=== PATIENT | male | born 1980 | race Caucasian/White ===

== ENCOUNTER 2018-09-11 15:26 | Inpatient (IN) | payer OTHER ==
[~2018-09-11] VITALS: Ht 177.8 cm; Wt 98.9 kg
[2018-09-11] MEDS ORDERED: ONDANSETRON PF 4 MG/2 ML VIAL. IV ONE (16:00)
[2018-09-11] MEDS ORDERED: MORPHINE SULFATE 10 MG/ML VIAL. IV ONE (16:00)
--- NOTE | 2018-09-11 16:13 | PHYS DOC ---
Adult General Chief Complaint Chief Complaint: Neck Pain HPI HPI Patient is a 38 year old male with history of chronic neck and back pain who presents with acute right-sided neck pain radiating to right shoulder, anterior chest. Symptom onset was 9 days ago. Symptoms gradually progress. Pain is described moderate to severe worse palpation, neck rotation and movement. 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 Denies trauma to the region. Patient has taken [id number] pain medication and has had multiple neck and just some spinous chiropractor in the past week. Reports history of herniated disks. No motor weakness. [place] from like Year. No other acute symptoms or complaints. [] Review of Systems Review of Systems Review symptoms as per history of present illness. All other review symptoms are negative.[] All other systems were reviewed and found to be within normal limits, except as documented in this note. Current Medications Current Medications Current Medications Medications (Trade) Dose Ordered Sig/Eddie Start Time Stop Time Status Last Admin Dose Admin Info (CONTRAST GIVEN -- Rx MONITORING) 1 each PRN DAILY PRN 09/11/18 17:45 09/13/18 17:44 Iohexol (Omnipaque 350 Mg/ml) 75 ml 1X ONCE 09/11/18 18:00 09/11/18 18:01 09/11/18 17:43 75 ML Lorazepam (Ativan Inj) 1 mg 1X ONCE 09/11/18 16:00 09/11/18 16:26 DC 09/11/18 16:37 1 MG Morphine Sulfate (Morphine Sulfate) 5 mg 1X ONCE 09/11/18 16:00 09/11/18 16:26 DC 09/11/18 16:37 5 MG Ondansetron HCl (Zofran) 4 mg 1X ONCE 09/11/18 16:00 09/11/18 16:26 DC 09/11/18 16:36 4 MG Allergies Allergies Allergies Coded Allergies Type Severity Reaction Last Updated Verified No Known Drug Allergies 09/11/18 No Physical Exam Physical Exam Constitutional: Well developed, well nourished, anxious, moderate distress secondary to pain.. [] HENT: Normocephalic, atraumatic, bilateral external ears normal, oropharynx moist, no oral exudates, nose normal. [] Eyes: PERRLA, EOMI, conjunctiva normal, no discharge. [] Neck: Restricted range of motion secondary to pain, right paracervical muscle pain, tenderness, reproducing complaint with palpation and rotation. No midline step-off, bruising or swelling.. [] Cardiovascular:Heart rate regular rhythm, no murmur [] Lungs & Thorax: Bilateral breath sounds clear to auscultation [] Neurologic: Alert and oriented X 3, normal motor function, normal sensory function, no focal deficits noted. [] Psychologic: Affect normal, judgement normal, mood normal. [] Current Patient Data Vital Signs Vital Signs Date Time Temp Pulse Resp B/P (MAP) Pulse Ox O2 Delivery O2 Flow Rate FiO2 09/11/18 16:37 20 98 Room Air 09/11/18 15:30 98.0 83 162/100 (120) 98.0 Lab Values Laboratory Tests Test 09/11/18 16:20 White Blood Count 8.4 x10^3/uL (4.0-11.0) Red Blood Count 5.40 x10^6/uL (4.30-5.70) Hemoglobin 16.4 g/dL (13.0-17.5) Hematocrit 47.9 % (39.0-53.0) Mean Corpuscular Volume 89 fL (79-100) Mean Corpuscular Hemoglobin 30 pg (25-35) Mean Corpuscular Hemoglobin Concent 34 g/dL (31-37) Red Cell Distribution Width 13.7 % (11.5-14.5) Platelet Count 232 x10^3/uL (140-400) Neutrophils (%) (Auto) 68 % (31-73) Lymphocytes (%) (Auto) 21 % (24-48) L Monocytes (%) (Auto) 10 % (0-9) H Eosinophils (%) (Auto) 1 % (0-3) Basophils (%) (Auto) 0 % (0-3) Neutrophils # (Auto) 5.7 x10^3uL (1.8-7.7) Lymphocytes # (Auto) 1.7 x10^3/uL (1.0-4.8) Monocytes # (Auto) 0.8 x10^3/uL (0.0-1.1) Eosinophils # (Auto) 0.1 x10^3/uL (0.0-0.7) Basophils # (Auto) 0.0 x10^3/uL (0.0-0.2) Sodium Level 141 mmol/L (136-145) Potassium Level 4.2 mmol/L (3.5-5.1) Chloride Level 105 mmol/L (98-107) Carbon Dioxide Level 27 mmol/L (21-32) Anion Gap 9 (6-14) Blood Urea Nitrogen 19 mg/dL (8-26) Creatinine 1.2 mg/dL (0.7-1.3) Estimated GFR (Cockcroft-Gault) 67.4 Glucose Level 119 mg/dL (70-99) H Calcium Level 9.1 mg/dL (8.5-10.1) Laboratory Tests 09/11/18 16:20 Laboratory Tests 09/11/18 16:20 EKG EKG [] Radiology/Procedures Radiology/Procedures [CT angiogram head and neck: Pending] Course & Med Decision Making Course & Med Decision Making Pertinent Labs and Imaging studies reviewed. (See chart for details) [Right paracervical neck pain with radiculopathy, no motor weakness. Pain is intractable requiring repeat doses of pain medication in the ED with patient reporting significant residual pain. MRI is unavailable for evaluation of possible disc herniation. Will admit to the hospital service for pain control and evaluation. Official CT angio head and neck studies at time of dictation. ] Dragon Disclaimer Dragon Disclaimer This electronic medical record was generated, in whole or in part, using a voice recognition dictation system. Departure Departure Impression: Primary Impression: Cervical radiculopathy, acute Additional Impression: Intractable pain Disposition: 09 ADMITTED INPATIENT Admitting Physician: Mecca Vinson Condition: IMPROVED Problem Qualifiers MIMI BINGHAM DO September 11, 2018 16:13
[2018-09-11 16:40] LABS: BASO % 0 % (0-3); EOS # 0.1 x10^3/uL (0.0-0.7); EOS % 1 % (0-3); HEMATOCRIT 47.9 % (39.0-53.0); HEMOGLOBIN 16.4 g/dL (13.0-17.5); LYMPH # 1.7 x10^3/uL (1.0-4.8); LYMPH % 21 % (24-48); MEAN CORPUSCULAR HEMOGLOBIN 30 pg (25-35); MEAN CORPUSCULAR HGB CONC 34 g/dL (31-37); MEAN CORPUSCULAR VOLUME 89 fL (79-100); MONO # 0.8 x10^3/uL (0.0-1.1); MONO % 10 % (0-9); NEUT # 5.7 x10^3uL (1.8-7.7); NEUT % 68 % (31-73); PLATELET COUNT 232 x10^3/uL (140-400); RED CELL DISTRIBUTION WIDTH 13.7 % (11.5-14.5); WHITE BLOOD COUNT 8.4 x10^3/uL (4.0-11.0)
[2018-09-11 16:48] LABS: CALCIUM 9.1 mg/dL (8.5-10.1); CREATININE 1.2 mg/dL (0.7-1.3); GFR 67.4; POTASSIUM 4.2 mmol/L (3.5-5.1)
[2018-09-11] MEDS ORDERED: CONTRAST GIVEN. MC PRN (17:45)
[2018-09-11] MEDS ORDERED: ONDANSETRON PF 4 MG/2 ML VIAL. IV PRN (18:00)
[2018-09-11] MEDS ORDERED: DEXAMETHASONE SOD PHOS 20 MG/5 ML VIAL. IV ONE (18:00)
[2018-09-11] MEDS ORDERED: IOHEXOL 350 MG/ML 100 ML VIAL. IV ONE (18:00)
--- NOTE | 2018-09-11 18:26 | RAD ---
Head and neck CTA with and without contrast and 3-D reconstruction: Clinical indications: Neck pain and headache for 9 days. Right arm tingling. Had seen chiropractor. Technique: Noncontrast axial localizer was performed. Following IV infusion of 100 cc of Omnipaque 350, helical CT scanning of the neck and head was performed. Axial and coronal and sagittal 2-D MIP reconstructions were generated and reviewed on a computer monitor. Using a MIP algorithm, a 3-D reconstructed angiogram was generated and reviewed on a computer monitor. PQRS compliance Statement One or more of the following individualized dose reduction techniques were utilized for this study: 1. Automated exposure control 2. Adjustment of the mA and/or kV according to patient size 3. Use of iterative reconstruction technique The measurements were performed using the NASCET criteria. Head CT Findings: No acute intracranial hemorrhage or midline shift or mass effect or hydrocephalus or extra-axial fluid collection or intracranial contrast enhancing lesion is seen. No focal hypodense area is seen to indicate an acute infarct or edema radiographically. Neck CTA Findings: No occlusive disease is seen. No significant stenosis is evident. The vertebral arteries are codominant in size. No intimal flap or dissection is seen. No soft tissue mass or enlarged cervical lymphadenopathy is seen. Head CTA Findings: No aneurysm is seen involving the [place]. No occlusive disease or significant stenosis is seen. No thromboembolism is identified. No arteriovenous malformation is evident. IMPRESSION: No significant abnormality. Electronically signed by: Ajay Cobos MD (09/11/2018 6:23 PM) [facility]
[2018-09-11 18:40] VITALS: BP 98/62
[2018-09-11] MEDS: MORPHINE SULFATE 2 MG/ML VIAL. IV PRN (20:19)
[2018-09-12] MEDS: MORPHINE SULFATE 2 MG/ML VIAL. IV PRN ×4 (00:23→08:43)
[2018-09-12] MEDS: IV NORMAL SALINE 1000ML BAG 1,000 ML IV SCH ×2 (06:36→15:08)
[2018-09-12] MEDS: CYCLOBENZAPRINE 10 MG TABLET. PO PRN ×2 (06:36→20:30)
[2018-09-12] MEDS: GABAPENTIN 300 MG CAPSULE. PO SCH ×2 (06:38→20:31)
[2018-09-12 07:00] VITALS: BP 141/64
[2018-09-12 07:06] LABS: BASO % 0 % (0-3); EOS # 0.1 x10^3/uL (0.0-0.7); EOS % 1 % (0-3); HEMATOCRIT 48.6 % (39.0-53.0); HEMOGLOBIN 16.5 g/dL (13.0-17.5); LYMPH # 2.2 x10^3/uL (1.0-4.8); LYMPH % 24 % (24-48); MEAN CORPUSCULAR HEMOGLOBIN 30 pg (25-35); MEAN CORPUSCULAR HGB CONC 34 g/dL (31-37); MEAN CORPUSCULAR VOLUME 89 fL (79-100); MONO # 0.7 x10^3/uL (0.0-1.1); MONO % 8 % (0-9); NEUT # 6.1 x10^3uL (1.8-7.7); NEUT % 67 % (31-73); PLATELET COUNT 234 x10^3/uL (140-400); RED BLOOD COUNT 5.45 x10^6/uL (4.30-5.70); RED CELL DISTRIBUTION WIDTH 13.6 % (11.5-14.5); WHITE BLOOD COUNT 9.1 x10^3/uL (4.0-11.0)
[2018-09-12 07:23] LABS: CALCIUM 8.9 mg/dL (8.5-10.1); CREATININE 1.2 mg/dL (0.7-1.3); GFR 67.4; POTASSIUM 3.9 mmol/L (3.5-5.1)
[2018-09-12] MEDS ORDERED: FEXO180T81 PO (08:50)
[2018-09-12] MEDS ORDERED: GABAPENTIN 300 MG CAPSULE. PO SCH (09:00)
[2018-09-12 11:00] VITALS: BP 98/59
--- NOTE | 2018-09-12 11:40 | PDOC1 ---
History and Physical Date of Admission Date of Admission DATE: 09/12/18 TIME: 11:40 Identification/Chief Complaint Chief Complaint SEEN IN ER , 38 year old male with history of chronic neck and back pain who presents with acute right-sided neck pain radiating to right shoulder, anterior chest. Symptom onset was 9 days ago. Symptoms gradually progress. Pain is described moderate to severe worse palpation, neck rotation and movement. 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 Reports history of herniated disks. No motor weakness Past Medical History Cardiovascular: Hyperlipidemia Past Surgical History Past Surgical History: No pertinent history Family History Family History: High Cholestrol Social History Smoke: No ALCOHOL: occassional Drugs: None Current Problem List Problem List Problems Medical Problems: (1) Cervical radiculopathy, acute Status: Acute (2) Intractable pain Status: Acute Current Medications Current Medications Current Medications Morphine Sulfate (Morphine Sulfate) 5 mg 1X ONCE IV Last administered on 09/11/18at 16:37; Start 09/11/18 at 16:00; Stop 09/11/18 at 16:26; Status DC Ondansetron HCl (Zofran) 4 mg 1X ONCE IV Last administered on 09/11/18at 16:36; Start 09/11/18 at 16:00; Stop 09/11/18 at 16:26; Status DC Lorazepam (Ativan Inj) 1 mg 1X ONCE IV Last administered on 09/11/18at 16:37; Start 09/11/18 at 16:00; Stop 09/11/18 at 16:26; Status DC Iohexol (Omnipaque 350 Mg/ml) 75 ml 1X ONCE IV Last administered on 09/11/18at 17:43; Start 09/11/18 at 18:00; Stop 09/11/18 at 18:01; Status DC Info (CONTRAST GIVEN -- Rx MONITORING) 1 each PRN DAILY PRN MC SEE COMMENTS; Start 09/11/18 at 17:45; Stop 09/13/18 at 17:44 Dexamethasone Sodium Phosphate (Decadron) 10 mg 1X ONCE IV ; Start 09/11/18 at 18:00; Stop 09/11/18 at 18:01; Status DC Ondansetron HCl (Zofran) 4 mg PRN Q8HRS PRN IV NAUSEA/VOMITING; Start 09/11/18 at 18:00; Stop 09/12/18 at 17:59 Morphine Sulfate (Morphine Sulfate) 2 mg PRN Q2HR PRN IV PAIN Last administered on 09/12/18at 08:43; Start 09/11/18 at 18:00; Stop 09/12/18 at 17:59 Lorazepam (Ativan Inj) 1 mg PRN Q6HRS PRN IV ANXIETY / AGITATION Last administered on 09/12/18at 08:43; Start 09/12/18 at 06:30 Sodium Chloride 1,000 ml @ 100 mls/hr Q10H IV Last administered on 09/12/18at 06:36; Start 09/12/18 at 06:30 Gabapentin (Neurontin) 300 mg TID PO ; Start 09/12/18 at 09:00; Stop 09/12/18 at 09:00; Status DC Cyclobenzaprine HCl (Flexeril) 10 mg PRN Q8HRS PRN PO MUSCLE SPASMS Last administered on 09/12/18at 06:36; Start 09/12/18 at 06:30 Gabapentin (Neurontin) 300 mg BID PO Last administered on 09/12/18at 06:38; Start 09/12/18 at 07:00 Active Scripts Active Reported Elizabeth Allergy (Fexofenadine Hcl) 180 Mg Tablet 1 Tab PO DAILY PRN Allergies Allergies: Coded Allergies: No Known Drug Allergies (Unverified , 09/11/18) ROS Review of System 14 PT ROS OTHERWISE NEG General: No: Chills, Night Sweats, Fatigue, Malaise, Appetite, Other PSYCHOLOGICAL ROS: No: Anxiety, Behavioral Disorder, Concentration difficultie, Decreased libido, Depression, Disorientation, Hallucinations, Hostility, Irritablity, Memory difficulties, Mood Swings, Obsessive thoughts, Physical abuse, Sexual abuse, Sleep disturbances, Suicidal ideation, Other Eyes: No Blurry vision, No Decreased vision, No Double vision, No Dry eyes, No Excessive tearing, No Eye Pain, No Itchy Eyes, No Loss of vision, No Photophobia, No Scotomata, No Uses contacts, No Uses glasses, No Other HEENT: No: Heacaches, Visual Changes, Hearing change, Nasal congestion, Nasal discharge, Oral lesions, Sinus pain, Sore Throat, Epistaxis, Sneezing, Snoring, Tinnitus, Vertigo, Vocal changes, Other ALLERGY AND IMMUNOLOGY: No: Hives, Insect Bite Sensitivity, Itchy/Watery Eyes, Nasal Congestion, Post Nasal Drip, Seasonal Allergies, Other Hematological and Lymphatic: No: Bleeding Problems, Blood Clots, Blood Transfusions, Brusing, Night Sweats, Pallor, Swollen Lymph Nodes, Other ENDOCRINE: No: Breast Changes, Galactorrhea, Hair Pattern Changes, Hot Flashes, Malaise/lethargy, Mood Swings, Palpitations, Polydipsia/polyuria, Skin Changes, Temperature Intolerance, Unexpected Weight Changes, Other Breast: No New/Changing Breast Lumps, No Nipple changes, No Nipple discharge, No Other Respiratory: No: Cough, Hemoptysis, Orthopnea, Pleuritic Pain, Shortness of breath, SOB with excertion, Sputum Changes, Stridor, Tachypnea, Wheezing, Other Cardiovascular: No Chest Pain, No Palpitations, No Orthopnea, No Paroxysmal Noc. Dyspnea, No Edema, No Lt Headedness, No Other Gastrointestinal: No Nausea, No Vomiting, No Abdominal Pain, No Diarrhea, No Constipation, No Melena, No Hematochezia, No Other Genitourinary: No Dysuria, No Frequency, No Incontinence, No Hematuria, No Retention, No Discharge, No Urgency, No Pain, No Flank Pain, No Other, No , No , No , No , No , No , No Musculoskeletal: No Gait Disturbance, No Joint Pain, No Joint Stiffness, No Joint Swelling, No Muscle Pain, No Muscular Weakness, No Pain In:, No Swelling In:, No Other Neurological: Yes Numbness/Tingling; No Behavorial Changes, No Bowel/Bladder ControlChng, No Confusion, No Dizziness, No Gait Disturbance, No Headaches, No Impaired Coord/balance, No Memory Loss, No Seizures, No Speech Problems, No Tremors, No Visual Changes, No Weakness, No Other Skin: No Dry Skin, No Eczema, No Hair Changes, No Lumps, No Mole Changes, No Mottling, No Nail Changes, No Pruritus, No Rash, No Skin Lesion Changes, No Other, No Acne Physical Exam Physical Exam Physical Exam Physical Exam Constitutional: Well developed, well nourished, anxious, moderate distress secondary to pain.. [] HENT: Normocephalic, atraumatic, bilateral external ears normal, oropharynx moist, no oral exudates, nose normal. [] Eyes: PERRLA, EOMI, conjunctiva normal, no discharge. [] Neck: Restricted range of motion secondary to pain, right paracervical muscle pain, tenderness, reproducing complaint with palpation and rotation. No midline step-off, bruising or swelling.. [] Cardiovascular:Heart rate regular rhythm, no murmur [] Lungs & Thorax: Bilateral breath sounds clear to auscultation [] Neurologic: Alert and oriented X 3, normal motor function, normal sensory function, no focal deficits noted. [] Psychologic: Affect normal, judgement normal, mood normal. [] General: Alert, Oriented X3, Cooperative Vitals Vitals Vital Signs Date Time Temp Pulse Resp B/P (MAP) Pulse Ox O2 Delivery O2 Flow Rate FiO2 09/12/18 11:00 97.8 57 18 98/59 (72) 98 Room Air 97.8 Labs Labs Laboratory Tests Test 09/11/18 16:20 09/12/18 05:34 White Blood Count 8.4 x10^3/uL (4.0-11.0) 9.1 x10^3/uL (4.0-11.0) Red Blood Count 5.40 x10^6/uL (4.30-5.70) 5.45 x10^6/uL (4.30-5.70) Hemoglobin 16.4 g/dL (13.0-17.5) 16.5 g/dL (13.0-17.5) Hematocrit 47.9 % (39.0-53.0) 48.6 % (39.0-53.0) Mean Corpuscular Volume 89 fL (79-100) 89 fL (79-100) Mean Corpuscular Hemoglobin 30 pg (25-35) 30 pg (25-35) Mean Corpuscular Hemoglobin Concent 34 g/dL (31-37) 34 g/dL (31-37) Red Cell Distribution Width 13.7 % (11.5-14.5) 13.6 % (11.5-14.5) Platelet Count 232 x10^3/uL (140-400) 234 x10^3/uL (140-400) Neutrophils (%) (Auto) 68 % (31-73) 67 % (31-73) Lymphocytes (%) (Auto) 21 % (24-48) 24 % (24-48) Monocytes (%) (Auto) 10 % (0-9) 8 % (0-9) Eosinophils (%) (Auto) 1 % (0-3) 1 % (0-3) Basophils (%) (Auto) 0 % (0-3) 0 % (0-3) Neutrophils # (Auto) 5.7 x10^3uL (1.8-7.7) 6.1 x10^3uL (1.8-7.7) Lymphocytes # (Auto) 1.7 x10^3/uL (1.0-4.8) 2.2 x10^3/uL (1.0-4.8) Monocytes # (Auto) 0.8 x10^3/uL (0.0-1.1) 0.7 x10^3/uL (0.0-1.1) Eosinophils # (Auto) 0.1 x10^3/uL (0.0-0.7) 0.1 x10^3/uL (0.0-0.7) Basophils # (Auto) 0.0 x10^3/uL (0.0-0.2) 0.0 x10^3/uL (0.0-0.2) Sodium Level 141 mmol/L (136-145) 141 mmol/L (136-145) Potassium Level 4.2 mmol/L (3.5-5.1) 3.9 mmol/L (3.5-5.1) Chloride Level 105 mmol/L (98-107) 104 mmol/L (98-107) Carbon Dioxide Level 27 mmol/L (21-32) 24 mmol/L (21-32) Anion Gap 9 (6-14) 13 (6-14) Blood Urea Nitrogen 19 mg/dL (8-26) 18 mg/dL (8-26) Creatinine 1.2 mg/dL (0.7-1.3) 1.2 mg/dL (0.7-1.3) Estimated GFR (Cockcroft-Gault) 67.4 67.4 Glucose Level 119 mg/dL (70-99) 122 mg/dL (70-99) Calcium Level 9.1 mg/dL (8.5-10.1) 8.9 mg/dL (8.5-10.1) Laboratory Tests Test 09/11/18 16:20 09/12/18 05:34 White Blood Count 8.4 x10^3/uL (4.0-11.0) 9.1 x10^3/uL (4.0-11.0) Red Blood Count 5.40 x10^6/uL (4.30-5.70) 5.45 x10^6/uL (4.30-5.70) Hemoglobin 16.4 g/dL (13.0-17.5) 16.5 g/dL (13.0-17.5) Hematocrit 47.9 % (39.0-53.0) 48.6 % (39.0-53.0) Mean Corpuscular Volume 89 fL (79-100) 89 fL (79-100) Mean Corpuscular Hemoglobin 30 pg (25-35) 30 pg (25-35) Mean Corpuscular Hemoglobin Concent 34 g/dL (31-37) 34 g/dL (31-37) Red Cell Distribution Width 13.7 % (11.5-14.5) 13.6 % (11.5-14.5) Platelet Count 232 x10^3/uL (140-400) 234 x10^3/uL (140-400) Neutrophils (%) (Auto) 68 % (31-73) 67 % (31-73) Lymphocytes (%) (Auto) 21 % (24-48) 24 % (24-48) Monocytes (%) (Auto) 10 % (0-9) 8 % (0-9) Eosinophils (%) (Auto) 1 % (0-3) 1 % (0-3) Basophils (%) (Auto) 0 % (0-3) 0 % (0-3) Neutrophils # (Auto) 5.7 x10^3uL (1.8-7.7) 6.1 x10^3uL (1.8-7.7) Lymphocytes # (Auto) 1.7 x10^3/uL (1.0-4.8) 2.2 x10^3/uL (1.0-4.8) Monocytes # (Auto) 0.8 x10^3/uL (0.0-1.1) 0.7 x10^3/uL (0.0-1.1) Eosinophils # (Auto) 0.1 x10^3/uL (0.0-0.7) 0.1 x10^3/uL (0.0-0.7) Basophils # (Auto) 0.0 x10^3/uL (0.0-0.2) 0.0 x10^3/uL (0.0-0.2) Sodium Level 141 mmol/L (136-145) 141 mmol/L (136-145) Potassium Level 4.2 mmol/L (3.5-5.1) 3.9 mmol/L (3.5-5.1) Chloride Level 105 mmol/L (98-107) 104 mmol/L (98-107) Carbon Dioxide Level 27 mmol/L (21-32) 24 mmol/L (21-32) Anion Gap 9 (6-14) 13 (6-14) Blood Urea Nitrogen 19 mg/dL (8-26) 18 mg/dL (8-26) Creatinine 1.2 mg/dL (0.7-1.3) 1.2 mg/dL (0.7-1.3) Estimated GFR (Cockcroft-Gault) 67.4 67.4 Glucose Level 119 mg/dL (70-99) 122 mg/dL (70-99) Calcium Level 9.1 mg/dL (8.5-10.1) 8.9 mg/dL (8.5-10.1) Images Images STATUS: ADM IN ORD. PHYSICIAN: MIMI BINGHAM DO REASON: neck pain, headache PROCEDURE: CT ANGIOGRAPHY HEAD AND NECK Head and neck CTA with and without contrast and 3-D reconstruction: Clinical indications: Neck pain and headache for 9 days. Right arm tingling. Had seen chiropractor. Technique: Noncontrast axial localizer was performed. Following IV infusion of 100 cc of Omnipaque 350, helical CT scanning of the neck and head was performed. Axial and coronal and sagittal 2-D MIP reconstructions were generated and reviewed on a computer monitor. Using a MIP algorithm, a 3-D reconstructed angiogram was generated and reviewed on a computer monitor. PQRS compliance Statement One or more of the following individualized dose reduction techniques were utilized for this study: 1. Automated exposure control 2. Adjustment of the mA and/or kV according to patient size 3. Use of iterative reconstruction technique The measurements were performed using the NASCET criteria. Head CT Findings: No acute intracranial hemorrhage or midline shift or mass effect or hydrocephalus or extra-axial fluid collection or intracranial contrast enhancing lesion is seen. No focal hypodense area is seen to indicate an acute infarct or edema radiographically. Neck CTA Findings: No occlusive disease is seen. No significant stenosis is evident. The vertebral arteries are codominant in size. No intimal flap or dissection is seen. No soft tissue mass or enlarged cervical lymphadenopathy is seen. Head CTA Findings: No aneurysm is seen involving the [place]. No occlusive disease or significant stenosis is seen. No thromboembolism is identified. No arteriovenous malformation is evident. IMPRESSION: No significant abnormality. Electronically signed by: Ajay Cobos MD (09/11/2018 6:23 PM) [facility]- VTE Prophylaxis Ordered VTE Prophylaxis Devices: No VTE Pharmacological Prophylaxi: Yes Assessment/Plan Assessment/Plan impression INTRACTABLE NECK PAIN Neck CTA Findings: No occlusive disease is seen. No significant stenosis is evident. The vertebral arteries are codominant in size. No intimal flap or dissection is seen. No soft tissue mass or enlarged cervical lymphadenopathy is seen. Head CTA Findings: No aneurysm is seen involving the [place]. No occlusive disease or significant stenosis is seen. No thromboembolism is identified. No arteriovenous malformation is evident. PLAN MRI C/S TODAY TREVA IV PAIN CONTROL DVT PROPHYLAXIS CONSULT NEUROSURGERY 75 min pt exam, chart review, > 50% of time spent with exam, chart review, pt care coordination JAMESON GUTIÉRREZ MD September 12, 2018 11:40
[2018-09-12] MEDS: HYDROmorphone 2 MG/ML VIAL IV PRN ×3 (13:59→23:19)
[2018-09-12 15:00] VITALS: BP 126/80
[2018-09-12] MEDS: ENOXAPARIN 40 MG/0.4 ML SYRINGE. SQ SCH (15:09)
[2018-09-12 19:20] VITALS: BP 116/74
[2018-09-12 23:24] VITALS: BP 147/80
--- NOTE | 2018-09-13 00:35 | CONS ---
DATE OF CONSULTATION: 09/12/2018 REASON FOR CONSULTATION: Neck and right arm pain. HISTORY OF PRESENT ILLNESS: The patient is a pleasant 38-year-old man who says he has a history of chronic neck pain and intermittent right arm discomfort, who about 10 days ago, developed severe neck pain along with pain which radiated into his right shoulder and arm. He notes pain in the anterior upper chest as well as the scapular region as well. There is no problem on the left side. He says that he feels as though his right arm is weak. He notes some numbness involving the thumb, index, middle and ring fingers intermittently. He says he has to hold his arm up over his head to gain relief. He has not noticed any problems with weakness or problems with his right upper extremity. There have been no difficulties with his lower extremities or gait. He has had physical therapy in the cervical spine in the past and over the last couple of weeks, he has seen two chiropractors, one 5 times and one twice, without any benefit. PAST MEDICAL HISTORY: Unremarkable. He denies any significant medical disease. ALLERGIES: He denies any allergies. MEDICATIONS: Reviewed on the MRAD. 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 REVIEW OF SYSTEMS: Review of systems with 12 points was performed and was negative, other than outlined above. PHYSICAL EXAMINATION: MUSCULOSKELETAL: He is supine in bed, in moderate distress because of the right shoulder and arm pain. I had him sit at the bedside. There was tenderness in the right paracervical region over the right trapezius muscle as well as the right mid scapular region with palpation. There was restricted range of motion of the cervical spine. NEUROLOGIC: On neurologic testing, he had strength at 5/5 in the upper and lower extremities, except for his right triceps, which was 4/5. Sensory examination was intact to light touch, except for subjective decrease in light touch involving the thumb, index, middle and ring fingers of his right hand. His reflexes were 1-2+ and symmetric, without pathologic reflexes. There was full range of motion of upper and lower extremities bilaterally. IMAGING DATA: I reviewed a CTA and visualized both the brain and the cervical architecture as well as the blood flow. I did not see a significant abnormality, except for evidence of spondylosis in the cervical spine. SUMMARY: My impression is that he has a significant right cervical radiculopathy and my concern is that he has herniated cervical disc He has failed conservative therapy including multiple chiropractic treatments recently as well as physical therapy in the past. 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 I am going to have a cervical MRI scan performed and evaluate him more fully such that a treatment plan can be developed. SHIVAM ALONSO MD DR: SILVANO/lisa JOB#: [id number] / [id number] INGA
[2018-09-13] MEDS: IV NORMAL SALINE 1000ML BAG 1,000 ML IV SCH ×3 (01:05→22:30)
[2018-09-13 02:57] VITALS: BP 93/45
[2018-09-13 05:20] LABS: ALBUMIN 3.4 g/dL (3.4-5.0); ALBUMIN/GLOBULIN RATIO 1.1 (1.0-1.7); CALCIUM 8.3 mg/dL (8.5-10.1); GFR 83.2; POTASSIUM 4.3 mmol/L (3.5-5.1); TOTAL BILIRUBIN 0.6 mg/dL (0.2-1.0); TOTAL PROTEIN 6.6 g/dL (6.4-8.2)
[2018-09-13] MEDS: HYDROmorphone 2 MG/ML VIAL IV PRN (06:15)
[2018-09-13 07:00] VITALS: BP 137/85
[2018-09-13] MEDS: CYCLOBENZAPRINE 10 MG TABLET. PO PRN ×2 (08:12→19:47)
[2018-09-13] MEDS: GABAPENTIN 300 MG CAPSULE. PO SCH ×3 (08:12→20:44)
[2018-09-13] MEDS ORDERED: CETIRIZINE HCL 10 MG TABLET. PO PRN (09:00)
--- NOTE | 2018-09-13 09:11 | PDOC ---
PROGRESS NOTES Chief Complaint Chief Complaint acute intractable neck pain right cervical radiculopathy - possible herniated cervical disk. History of Present Illness History of Present Illness pain better with high dose IV pain meds, try PO increase the gabapentin stool softeners MRI needed for NS treatment plan Vitals Vitals Vital Signs Date Time Temp Pulse Resp B/P (MAP) Pulse Ox O2 Delivery O2 Flow Rate FiO2 09/13/18 07:31 Room Air 09/13/18 07:00 98.1 85 18 137/85 (102) 95 98.1 Physical Exam General: Alert, Oriented X3, Cooperative, mild distress Heart: Regular rate, Normal S1 Lungs: Clear Abdomen: Soft Skin: No rashes Labs LABS Laboratory Tests Test 09/13/18 04:06 Sodium Level 140 mmol/L (136-145) Potassium Level 4.3 mmol/L (3.5-5.1) Chloride Level 106 mmol/L (98-107) Carbon Dioxide Level 25 mmol/L (21-32) Anion Gap 9 (6-14) Blood Urea Nitrogen 12 mg/dL (8-26) Creatinine 1.0 mg/dL (0.7-1.3) Estimated GFR (Cockcroft-Gault) 83.2 BUN/Creatinine Ratio 12 (6-20) Glucose Level 90 mg/dL (70-99) Calcium Level 8.3 mg/dL (8.5-10.1) Total Bilirubin 0.6 mg/dL (0.2-1.0) Aspartate Amino Transf (AST/SGOT) 31 U/L (15-37) Alanine Aminotransferase (ALT/SGPT) 74 U/L (16-63) Alkaline Phosphatase 67 U/L (46-116) Total Protein 6.6 g/dL (6.4-8.2) Albumin 3.4 g/dL (3.4-5.0) Albumin/Globulin Ratio 1.1 (1.0-1.7) Assessment and Plan Assessmemt and Plan Problems Medical Problems: (1) Cervical radiculopathy, acute Status: Acute (2) Intractable pain Status: Acute Comment Review of Relevant I have reviewed the following items jennifer (where applicable) has been applied. Labs Laboratory Tests Test 09/11/18 16:20 09/12/18 05:34 09/13/18 04:06 White Blood Count 8.4 x10^3/uL (4.0-11.0) 9.1 x10^3/uL (4.0-11.0) Red Blood Count 5.40 x10^6/uL (4.30-5.70) 5.45 x10^6/uL (4.30-5.70) Hemoglobin 16.4 g/dL (13.0-17.5) 16.5 g/dL (13.0-17.5) Hematocrit 47.9 % (39.0-53.0) 48.6 % (39.0-53.0) Mean Corpuscular Volume 89 fL (79-100) 89 fL (79-100) Mean Corpuscular Hemoglobin 30 pg (25-35) 30 pg (25-35) Mean Corpuscular Hemoglobin Concent 34 g/dL (31-37) 34 g/dL (31-37) Red Cell Distribution Width 13.7 % (11.5-14.5) 13.6 % (11.5-14.5) Platelet Count 232 x10^3/uL (140-400) 234 x10^3/uL (140-400) Neutrophils (%) (Auto) 68 % (31-73) 67 % (31-73) Lymphocytes (%) (Auto) 21 % (24-48) 24 % (24-48) Monocytes (%) (Auto) 10 % (0-9) 8 % (0-9) Eosinophils (%) (Auto) 1 % (0-3) 1 % (0-3) Basophils (%) (Auto) 0 % (0-3) 0 % (0-3) Neutrophils # (Auto) 5.7 x10^3uL (1.8-7.7) 6.1 x10^3uL (1.8-7.7) Lymphocytes # (Auto) 1.7 x10^3/uL (1.0-4.8) 2.2 x10^3/uL (1.0-4.8) Monocytes # (Auto) 0.8 x10^3/uL (0.0-1.1) 0.7 x10^3/uL (0.0-1.1) Eosinophils # (Auto) 0.1 x10^3/uL (0.0-0.7) 0.1 x10^3/uL (0.0-0.7) Basophils # (Auto) 0.0 x10^3/uL (0.0-0.2) 0.0 x10^3/uL (0.0-0.2) Sodium Level 141 mmol/L (136-145) 141 mmol/L (136-145) 140 mmol/L (136-145) Potassium Level 4.2 mmol/L (3.5-5.1) 3.9 mmol/L (3.5-5.1) 4.3 mmol/L (3.5-5.1) Chloride Level 105 mmol/L (98-107) 104 mmol/L (98-107) 106 mmol/L (98-107) Carbon Dioxide Level 27 mmol/L (21-32) 24 mmol/L (21-32) 25 mmol/L (21-32) Anion Gap 9 (6-14) 13 (6-14) 9 (6-14) Blood Urea Nitrogen 19 mg/dL (8-26) 18 mg/dL (8-26) 12 mg/dL (8-26) Creatinine 1.2 mg/dL (0.7-1.3) 1.2 mg/dL (0.7-1.3) 1.0 mg/dL (0.7-1.3) Estimated GFR (Cockcroft-Gault) 67.4 67.4 83.2 Glucose Level 119 mg/dL (70-99) 122 mg/dL (70-99) 90 mg/dL (70-99) Calcium Level 9.1 mg/dL (8.5-10.1) 8.9 mg/dL (8.5-10.1) 8.3 mg/dL (8.5-10.1) BUN/Creatinine Ratio 12 (6-20) Total Bilirubin 0.6 mg/dL (0.2-1.0) Aspartate Amino Transf (AST/SGOT) 31 U/L (15-37) Alanine Aminotransferase (ALT/SGPT) 74 U/L (16-63) Alkaline Phosphatase 67 U/L (46-116) Total Protein 6.6 g/dL (6.4-8.2) Albumin 3.4 g/dL (3.4-5.0) Albumin/Globulin Ratio 1.1 (1.0-1.7) Laboratory Tests Test 09/13/18 04:06 Sodium Level 140 mmol/L (136-145) Potassium Level 4.3 mmol/L (3.5-5.1) Chloride Level 106 mmol/L (98-107) Carbon Dioxide Level 25 mmol/L (21-32) Anion Gap 9 (6-14) Blood Urea Nitrogen 12 mg/dL (8-26) Creatinine 1.0 mg/dL (0.7-1.3) Estimated GFR (Cockcroft-Gault) 83.2 BUN/Creatinine Ratio 12 (6-20) Glucose Level 90 mg/dL (70-99) Calcium Level 8.3 mg/dL (8.5-10.1) Total Bilirubin 0.6 mg/dL (0.2-1.0) Aspartate Amino Transf (AST/SGOT) 31 U/L (15-37) Alanine Aminotransferase (ALT/SGPT) 74 U/L (16-63) Alkaline Phosphatase 67 U/L (46-116) Total Protein 6.6 g/dL (6.4-8.2) Albumin 3.4 g/dL (3.4-5.0) Albumin/Globulin Ratio 1.1 (1.0-1.7) Medications Current Medications Morphine Sulfate (Morphine Sulfate) 5 mg 1X ONCE IV Last administered on 09/11/18at 16:37; Start 09/11/18 at 16:00; Stop 09/11/18 at 16:26; Status DC Ondansetron HCl (Zofran) 4 mg 1X ONCE IV Last administered on 09/11/18at 16:36; Start 09/11/18 at 16:00; Stop 09/11/18 at 16:26; Status DC Lorazepam (Ativan Inj) 1 mg 1X ONCE IV Last administered on 09/11/18at 16:37; Start 09/11/18 at 16:00; Stop 09/11/18 at 16:26; Status DC Iohexol (Omnipaque 350 Mg/ml) 75 ml 1X ONCE IV Last administered on 09/11/18at 17:43; Start 09/11/18 at 18:00; Stop 09/11/18 at 18:01; Status DC Info (CONTRAST GIVEN -- Rx MONITORING) 1 each PRN DAILY PRN MC SEE COMMENTS; Start 09/11/18 at 17:45; Stop 09/13/18 at 17:44 Dexamethasone Sodium Phosphate (Decadron) 10 mg 1X ONCE IV ; Start 09/11/18 at 18:00; Stop 09/11/18 at 18:01; Status DC Ondansetron HCl (Zofran) 4 mg PRN Q8HRS PRN IV NAUSEA/VOMITING; Start 09/11/18 at 18:00; Stop 09/12/18 at 17:59; Status DC Morphine Sulfate (Morphine Sulfate) 2 mg PRN Q2HR PRN IV PAIN Last administered on 09/12/18at 08:43; Start 09/11/18 at 18:00; Stop 09/12/18 at 13:52; Status DC Lorazepam (Ativan Inj) 1 mg PRN Q6HRS PRN IV ANXIETY / AGITATION Last administered on 09/12/18at 15:09; Start 09/12/18 at 06:30 Sodium Chloride 1,000 ml @ 100 mls/hr Q10H IV Last administered on 09/13/18at 01:05; Start 09/12/18 at 06:30 Gabapentin (Neurontin) 300 mg TID PO ; Start 09/12/18 at 09:00; Stop 09/12/18 at 09:00; Status DC Cyclobenzaprine HCl (Flexeril) 10 mg PRN Q8HRS PRN PO MUSCLE SPASMS Last administered on 09/13/18at 08:12; Start 09/12/18 at 06:30 Gabapentin (Neurontin) 300 mg BID PO Last administered on 09/13/18at 08:12; Start 09/12/18 at 07:00 Cetirizine HCl (ZyrTEC) 10 mg PRN DAILY PRN PO allergy; Start 09/13/18 at 09:00 Enoxaparin Sodium (Lovenox 40mg Syringe) 40 mg Q24H SQ Last administered on 09/12/18at 15:09; Start 09/12/18 at 14:00 Hydromorphone HCl (Dilaudid) 2 mg PRN Q4HRS PRN IV PAIN Last administered on 09/13/18at 06:15; Start 09/12/18 at 14:00 Active Scripts Active Reported Elizabeth Allergy (Fexofenadine Hcl) 180 Mg Tablet 1 Tab PO DAILY PRN Vitals/I & O Vital Sign - Last 24 Hours 5/26/19 5/26/19 5/26/19 5/26/19 09:13 11:00 13:59 14:29 Temp 97.8 97.8 Pulse 57 Resp 20 18 20 20 B/P (MAP) 98/59 (72) Pulse Ox 97 98 O2 Delivery Room Air Room Air Room Air 09/12/18 09/12/18 09/12/18 09/12/18 15:00 19:16 19:20 20:00 Temp 98.2 98.1 98.2 98.1 Pulse 68 66 Resp 18 20 18 B/P (MAP) 126/80 (95) 116/74 (88) Pulse Ox 97 93 O2 Delivery Room Air Room Air Room Air Room Air 09/12/18 09/12/18 09/13/18 09/13/18 23:19 23:24 02:57 06:15 Temp 97.4 98.0 97.4 98.0 Pulse 68 66 Resp 18 20 B/P (MAP) 147/80 (102) 93/45 (61) Pulse Ox 97 96 O2 Delivery Room Air Room Air Room Air Room Air 09/13/18 09/13/18 09/13/18 06:45 07:00 07:31 Temp 98.1 98.1 Pulse 85 Resp 18 B/P (MAP) 137/85 (102) Pulse Ox 95 O2 Delivery Room Air Room Air Room Air Intake and Output 09/12/18 09/12/18 09/13/18 15:00 23:00 07:00 Intake Total 240 ml 650 ml 1740 ml Balance 240 ml 650 ml 1740 ml JAIME AGUAYO MD September 13, 2018 09:11
[2018-09-13] MEDS ORDERED: POLYETHYLENE GLYCOL 3350 17 GM PACKET. PO PRN (09:15)
[2018-09-13] MEDS: POLYETHYLENE GLYCOL 3350 17 GM PACKET. PO SCH (09:45)
[2018-09-13] MEDS: DOCUSATE SODIUM 100 MG CAPSULE. PO SCH (09:45)
[2018-09-13 11:00] VITALS: BP 119/79
[2018-09-13] MEDS: HYDROcodone/APAP 10/325 1 TAB TABLET PO PRN ×2 (12:26→19:40)
[2018-09-13] MEDS: ENOXAPARIN 40 MG/0.4 ML SYRINGE. SQ SCH (14:00)
[2018-09-13 15:00] VITALS: BP 143/94
[2018-09-13 19:00] VITALS: BP 143/63
[2018-09-13 23:00] VITALS: BP 124/59
[2018-09-14 03:00] VITALS: BP 112/58
[2018-09-14 07:00] VITALS: BP 136/87
[2018-09-14] MEDS: IV NORMAL SALINE 1000ML BAG 1,000 ML IV SCH ×2 (08:30→17:11)
[2018-09-14] MEDS: GABAPENTIN 300 MG CAPSULE. PO SCH ×3 (08:34→20:37)
[2018-09-14] MEDS: DOCUSATE SODIUM 100 MG CAPSULE. PO SCH (08:34)
[2018-09-14] MEDS: CYCLOBENZAPRINE 10 MG TABLET. PO PRN ×2 (08:35→17:12)
[2018-09-14] MEDS: POLYETHYLENE GLYCOL 3350 17 GM PACKET. PO SCH (08:35)
[2018-09-14 11:00] VITALS: BP 113/61
--- NOTE | 2018-09-14 12:00 | PDOC ---
PROGRESS NOTES Chief Complaint Chief Complaint acute intractable neck pain right cervical radiculopathy - possible herniated cervical disk. History of Present Illness History of Present Illness MRI broken here, needs repair care coordination team try to coordinate MRI at other facility and return here today, pain a little better Neurosurg intervention may be needed stool softeners MRI needed for NS treatment plan Vitals Vitals Vital Signs Date Time Temp Pulse Resp B/P (MAP) Pulse Ox O2 Delivery O2 Flow Rate FiO2 09/14/18 07:15 Room Air 09/14/18 07:00 97.7 63 18 136/87 (103) 97 97.7 Physical Exam General: Alert, Oriented X3, Cooperative, mild distress Heart: Regular rate, Normal S1 Lungs: Clear Abdomen: Soft Skin: No rashes Assessment and Plan Assessmemt and Plan Problems Medical Problems: (1) Cervical radiculopathy, acute Status: Acute (2) Intractable pain Status: Acute Comment Review of Relevant I have reviewed the following items jennifer (where applicable) has been applied. Labs Laboratory Tests Test 09/13/18 04:06 Sodium Level 140 mmol/L (136-145) Potassium Level 4.3 mmol/L (3.5-5.1) Chloride Level 106 mmol/L (98-107) Carbon Dioxide Level 25 mmol/L (21-32) Anion Gap 9 (6-14) Blood Urea Nitrogen 12 mg/dL (8-26) Creatinine 1.0 mg/dL (0.7-1.3) Estimated GFR (Cockcroft-Gault) 83.2 BUN/Creatinine Ratio 12 (6-20) Glucose Level 90 mg/dL (70-99) Calcium Level 8.3 mg/dL (8.5-10.1) Total Bilirubin 0.6 mg/dL (0.2-1.0) Aspartate Amino Transf (AST/SGOT) 31 U/L (15-37) Alanine Aminotransferase (ALT/SGPT) 74 U/L (16-63) Alkaline Phosphatase 67 U/L (46-116) Total Protein 6.6 g/dL (6.4-8.2) Albumin 3.4 g/dL (3.4-5.0) Albumin/Globulin Ratio 1.1 (1.0-1.7) Medications Current Medications Morphine Sulfate (Morphine Sulfate) 5 mg 1X ONCE IV Last administered on 09/11/18at 16:37; Start 09/11/18 at 16:00; Stop 09/11/18 at 16:26; Status DC Ondansetron HCl (Zofran) 4 mg 1X ONCE IV Last administered on 09/11/18at 16:36; Start 09/11/18 at 16:00; Stop 09/11/18 at 16:26; Status DC Lorazepam (Ativan Inj) 1 mg 1X ONCE IV Last administered on 09/11/18at 16:37; Start 09/11/18 at 16:00; Stop 09/11/18 at 16:26; Status DC Iohexol (Omnipaque 350 Mg/ml) 75 ml 1X ONCE IV Last administered on 09/11/18at 17:43; Start 09/11/18 at 18:00; Stop 09/11/18 at 18:01; Status DC Info (CONTRAST GIVEN -- Rx MONITORING) 1 each PRN DAILY PRN MC SEE COMMENTS; Start 09/11/18 at 17:45; Stop 09/13/18 at 17:44; Status DC Dexamethasone Sodium Phosphate (Decadron) 10 mg 1X ONCE IV ; Start 09/11/18 at 18:00; Stop 09/11/18 at 18:01; Status DC Ondansetron HCl (Zofran) 4 mg PRN Q8HRS PRN IV NAUSEA/VOMITING; Start 09/11/18 at 18:00; Stop 09/12/18 at 17:59; Status DC Morphine Sulfate (Morphine Sulfate) 2 mg PRN Q2HR PRN IV PAIN Last administered on 09/12/18at 08:43; Start 09/11/18 at 18:00; Stop 09/12/18 at 13:52; Status DC Lorazepam (Ativan Inj) 1 mg PRN Q6HRS PRN IV ANXIETY / AGITATION Last administered on 09/12/18at 15:09; Start 09/12/18 at 06:30 Sodium Chloride 1,000 ml @ 100 mls/hr Q10H IV Last administered on 09/13/18at 12:23; Start 09/12/18 at 06:30 Gabapentin (Neurontin) 300 mg TID PO ; Start 09/12/18 at 09:00; Stop 09/12/18 at 09:00; Status DC Cyclobenzaprine HCl (Flexeril) 10 mg PRN Q8HRS PRN PO MUSCLE SPASMS Last administered on 09/14/18 08:35; Start 09/12/18 at 06:30 Gabapentin (Neurontin) 300 mg BID PO Last administered on 09/13/18at 08:12; St art 09/12/18 at 07:00; Stop 09/13/18 at 09:09; Status DC Cetirizine HCl (ZyrTEC) 10 mg PRN DAILY PRN PO allergy; Start 09/13/18 at 09:00 Enoxaparin Sodium (Lovenox 40mg Syringe) 40 mg Q24H SQ Last administered on 09/12/18 15:09; Start 09/12/18 at 14:00 Hydromorphone HCl (Dilaudid) 2 mg PRN Q4HRS PRN IV PAIN Last administered on 09/13/18 06:15; Start 09/12/18 at 14:00 Gabapentin (Neurontin) 600 mg TID PO Last administered on 09/14/18 08:34; Start 09/13/18 at 14:00 Docusate Sodium (Colace) 100 mg DAILY PO Last administered on 09/14/18 08:34; Start 09/13/18 at 10:00 Polyethylene Glycol (miraLAX PACKET) 17 gm PRN DAILY PRN PO CONSTIPATION; Start 09/13/18 at 09:15 Polyethylene Glycol (miraLAX PACKET) 17 gm DAILY PO Last administered on 09/14/18 08:35; Start 09/13/18 at 09:30 Acetaminophen/ Hydrocodone Bitart (Lortab 10/325) 1 tab PRN Q6HRS PRN PO PAIN Last administered on 09/13/18at 19:40; Start 09/13/18 at 09:15 Active Scripts Active Reported Elizabeth Allergy (Fexofenadine Hcl) 180 Mg Tablet 1 Tab PO DAILY PRN Vitals/I & O Vital Sign - Last 24 Hours 09/13/18 09/13/18 09/13/18 09/13/18 12:26 15:00 19:00 19:40 Temp 99.9 98.5 99.9 98.5 Pulse 75 72 Resp 18 18 B/P (MAP) 143/94 (110) 143/63 (89) Pulse Ox 94 96 O2 Delivery Room Air Room Air Room Air Room Air 09/13/18 09/13/18 09/13/18 09/14/18 19:40 20:40 23:00 03:00 Temp 98.2 98.6 98.2 98.6 Pulse 67 61 Resp 18 18 B/P (MAP) 124/59 (80) 112/58 (76) Pulse Ox 97 96 O2 Delivery Room Air Room Air Room Air Room Air 09/14/18 09/14/18 07:00 07:15 Temp 97.7 97.7 Pulse 63 Resp 18 B/P (MAP) 136/87 (103) Pulse Ox 97 O2 Delivery Room Air Room Air Intake and Output 09/13/18 09/13/18 09/14/18 15:00 23:00 07:00 Intake Total 600 ml 500 ml 300 ml Output Total 400 ml 900 ml Balance 600 ml 100 ml -600 ml JAIME AGUAYO MD September 14, 2018 11:59
[2018-09-14] MEDS: ENOXAPARIN 40 MG/0.4 ML SYRINGE. SQ SCH (13:46)
[2018-09-14] MEDS: HYDROcodone/APAP 10/325 1 TAB TABLET PO PRN ×2 (13:47→20:46)
--- NOTE | 2018-09-14 13:48 | NUR ---
SW following for discharge planning. Discussed with RN, pt needing an MRI, however [facility] MRI is currently not working. JOSELITO contacted [facility] ([phone]) to determine if availability for pt to transfer there for an MRI, pt can go for a 1445 cervical MRI without contrast. [facility] does not have any transportation available. JOSELITO set up [address] oyster picker with [facility] ([phone]), [facility] is aware pt needs to come back to [facility], they will likely wait. Louis ([phone]) pharmacy operations manager at [facility] is aware of plan. RN and nursing freight loading supervisor notified. JOSELITO will continue to follow for discharge planning.
--- NOTE | 2018-09-14 14:02 | NUR ---
pt leaving for MRI at this time off of [address]. pt is going to have MRI there due to ours being out of service at this time. pt will return when MRI is complete. LIZ Bassett will be with pt at all times including during [facility] transport.
[2018-09-14 15:00] VITALS: BP 124/79
--- NOTE | 2018-09-14 15:30 | RAD ---
MRI Cervical Spine Without Contrast History: Cervical radiculopathy affecting right shoulder and right arm Technique: Multiplanar, multi sequential noncontrast MR imaging was performed of the cervical spine. Comparison: None Findings: There is motion degradation, somewhat limits accurate evaluation of neural foramina especially on axial images. Cervical cord caliber is within normal limits without defined or expansile signal abnormality. Cervical vertebral body stature and AP alignment are maintained. There is no significant marrow edema. There is mild degenerative disc disease C5-C6, mild disc desiccation C6-7. C2-C3: Spinal canal and neural foramina are adequate. C3-C4: Spinal canal and neural foramina are adequate. C4-C5: Spinal canal and neural foramina are adequate. C5-C6: There is disc osteophyte complex and bulge slightly indenting the ventral thecal sac, central canal narrowed to about 9 mm. There is facet degenerative change bilaterally, also mild uncovertebral degenerative change. There is probable mild to moderate neural foramina compromise bilaterally although poorly characterized due to motion. C6-C7: There is disc osteophyte complex, superimposed shallow protrusion more eccentric to the far right lateral recess, protrusion measuring about 2 mm AP. Central canal is likely minimally narrowed to about 9 to 10 mm with a greater degree of [id number] narrowing of the far right lateral recess with focal effacement of ventral subarachnoid space in the far right lateral recess. There is right facet uncovertebral degenerative change. There is probable fairly severe narrowing of the right neural foramen, left neural foramen probably minimally narrowed. C7-T1: Spinal canal and neural foramina are adequate. Impression: 1. There is mild spinal stenosis C5-6 and C6-7, greater degree of narrowing of the far right lateral recess at C6-7 by protrusion superimposed on disc osteophyte complex. 2. There is suspected neural foramina compromise as stated on the right at C6-7 and and to a lesser degree bilaterally at C5-6 in part from uncovertebral degenerative change although neural foramina are poorly accurately characterized due to motion artifact. Electronically signed by: Aniceto Hampton MD (09/14/2018 3:27 PM) [id number]
--- NOTE | 2018-09-14 17:18 | NUR ---
pt returned to [place] from having MRI at 1512 in stable condition. pt is alert and oriented and stating his pain is 5/10. report recieved from LIZ Bassett. will continue to monitor.
[2018-09-14 19:20] VITALS: BP 131/69
[2018-09-14 23:09] VITALS: BP 107/65
[2018-09-15] VITALS (12 sets, daily range): BP systolic 109–119; BP diastolic 64–74
[2018-09-15] MEDS: IV NORMAL SALINE 1000ML BAG 1,000 ML IV SCH ×2 (05:56→15:12)
[2018-09-15] MEDS ORDERED: BACITRACIN 50,000 UNIT in IV NORMAL SALINE 1000ML BAG 1,000 ML IRR ONE (06:00)
[2018-09-15] MEDS ORDERED: BUPIVAC MPF-EPI 0.5%-1:200000 30 ML VIAL. ONE (06:19)
[2018-09-15] MEDS ORDERED: GELATIN SPONGE SIZE 12-7MM SPONGE. ONE (06:20)
[2018-09-15] MEDS ORDERED: THROMBIN TOPICAL 20,000 UNIT SPRAY.SYRN KIT TP ONE (06:20)
[2018-09-15] MEDS ORDERED: IV RINGERS,LACTATED 1000ML 1,000 ML IV SCH (07:07)
[2018-09-15] MEDS ORDERED: MORPHINE SULFATE 2 MG/ML VIAL. IV PRN (07:15)
[2018-09-15] MEDS ORDERED: LIDOCAINE 1% PF 2 ML VIAL. ID PRN (07:15)
[2018-09-15] MEDS ORDERED: ONDANSETRON PF 4 MG/2 ML VIAL. IV PRN (07:15)
[2018-09-15] MEDS ORDERED: fentaNYL PF VIAL 100 MCG/2 ML VIAL IV PRN (07:15)
[2018-09-15] MEDS ORDERED: PROCHLORPERAZINE 10 MG/2 ML VIAL. IV PRN (07:15)
[2018-09-15] MEDS ORDERED: HYDROmorphone 2 MG/ML VIAL IV PRN (07:15)
--- NOTE | 2018-09-15 07:39 | NUR ---
This nurse gave report to recovery. Will pass on to LIZ Graves
[2018-09-15] MEDS ORDERED: REMIFENTANIL 2 MG VIAL. IV ONE (08:47)
[2018-09-15] MEDS ORDERED: MIDAZOLAM HCL/PF 2 MG/2 ML VIAL. ONE (08:47)
[2018-09-15] MEDS ORDERED: ROCURONIUM 50 MG/5 ML VIAL. ONE (08:47)
[2018-09-15] MEDS ORDERED: fentaNYL PF VIAL 100 MCG/2 ML VIAL ONE ×2 (08:47→12:44)
[2018-09-15] MEDS: DOCUSATE SODIUM 100 MG CAPSULE. PO SCH (09:00)
[2018-09-15] MEDS: POLYETHYLENE GLYCOL 3350 17 GM PACKET. PO SCH (09:00)
[2018-09-15] MEDS ORDERED: ceFAZolin 2GM PREMIX 2 GM/50 ML BAG IV ONE (09:00)
[2018-09-15] MEDS ORDERED: PHENYLEPHRINE 10 MG/ML VIAL. ONE ×2 (10:35)
--- NOTE | 2018-09-15 10:41 | NUR ---
SW following for discharge planning. Discussed with RN, pt had MRI yesterday, having surgery today. Possible PT/OT after surgery. SW will continue to follow.
[2018-09-15] MEDS ORDERED: PROPOFOL 50 ML IV ONE ×3 (12:02→12:22)
[2018-09-15] MEDS ORDERED: PHENYLEPHRINE in 0.9% NACL PF 1 MG/10 ML SYRINGE. IV ONE (12:02)
[2018-09-15] MEDS ORDERED: LIDOCAINE 2% PF 5 ML VIAL. ONE (12:02)
[2018-09-15] MEDS ORDERED: PROPOFOL 20 ML IV ONE (12:02)
[2018-09-15] MEDS ORDERED: DEXAMETHASONE SOD PHOS 20 MG/5 ML VIAL. ONE (12:02)
[2018-09-15] MEDS ORDERED: ONDANSETRON PF 4 MG/2 ML VIAL. ONE (12:02)
[2018-09-15] MEDS ORDERED: DESFLURANE > 120 MINUTES IH ONE (12:03)
[2018-09-15] MEDS ORDERED: REMIFENTANIL 1 MG VIAL. IV ONE (12:05)
[2018-09-15] MEDS: fentaNYL PF VIAL 100 MCG/2 ML VIAL IV PRN ×2 (12:46→12:55)
--- NOTE | 2018-09-15 13:05 | PDOC ---
PROGRESS NOTES Chief Complaint Chief Complaint acute intractable neck pain right cervical radiculopathy - possible herniated cervical disk. History of Present Illness History of Present Illness Patient in surgery attempted twice to visit with the patient will try to elicit later again I have made myself available to the nursing staff Vitals Vitals Vital Signs Date Time Temp Pulse Resp B/P (MAP) Pulse Ox O2 Delivery O2 Flow Rate FiO2 09/15/18 12:39 Mask 10 09/15/18 12:39 97.7 91 15 126/56 95 97.7 Assessment and Plan Assessmemt and Plan Problems Medical Problems: (1) Cervical radiculopathy, acute Status: Acute (2) Intractable pain Status: Acute Comment Review of Relevant I have reviewed the following items jennifer (where applicable) has been applied. Medications Current Medications Morphine Sulfate (Morphine Sulfate) 5 mg 1X ONCE IV Last administered on 09/11/18 16:37; Start 09/11/18 at 16:00; Stop 09/11/18 at 16:26; Status DC Ondansetron HCl (Zofran) 4 mg 1X ONCE IV Last administered on 09/11/18at 16:36; Start 09/11/18 at 16:00; Stop 09/11/18 at 16:26; Status DC Lorazepam (Ativan Inj) 1 mg 1X ONCE IV Last administered on 09/11/18at 16:37; Start 09/11/18 at 16:00; Stop 09/11/18 at 16:26; Status DC Iohexol (Omnipaque 350 Mg/ml) 75 ml 1X ONCE IV Last administered on 09/11/18at 17:43; Start 09/11/18 at 18:00; Stop 09/11/18 at 18:01; Status DC Info (CONTRAST GIVEN -- Rx MONITORING) 1 each PRN DAILY PRN MC SEE COMMENTS; Start 09/11/18 at 17:45; Stop 09/13/18 at 17:44; Status DC Dexamethasone Sodium Phosphate (Decadron) 10 mg 1X ONCE IV ; Start 09/11/18 at 18:00; Stop 09/11/18 at 18:01; Status DC Ondansetron HCl (Zofran) 4 mg PRN Q8HRS PRN IV NAUSEA/VOMITING; Start 09/11/18 at 18:00; Stop 09/12/18 at 17:59; Status DC Morphine Sulfate (Morphine Sulfate) 2 mg PRN Q2HR PRN IV PAIN Last administered on 09/12/18 08:43; Start 09/11/18 at 18:00; Stop 09/12/18 at 13:52; Status DC Lorazepam (Ativan Inj) 1 mg PRN Q6HRS PRN IV ANXIETY / AGITATION Last administered on 09/12/18at 15:09; Start 09/12/18 at 06:30 Sodium Chloride 1,000 ml @ 100 mls/hr Q10H IV Last administered on 09/15/18at 05:56; Start 09/12/18 at 06:30 Gabapentin (Neurontin) 300 mg TID PO ; Start 09/12/18 at 09:00; Stop 09/12/18 at 09:00; Status DC Cyclobenzaprine HCl (Flexeril) 10 mg PRN Q8HRS PRN PO MUSCLE SPASMS Last administered on 09/14/18at 17:12; Start 09/12/18 at 06:30 Gabapentin (Neurontin) 300 mg BID PO Last administered on 09/13/18 08:12; Start 09/12/18 at 07:00; Stop 09/13/18 at 09:09; Status DC Cetirizine HCl (ZyrTEC) 10 mg PRN DAILY PRN PO allergy; Start 09/13/18 at 09:00 Enoxaparin Sodium (Lovenox 40mg Syringe) 40 mg Q24H SQ Last administered on 09/12/18 15:09; Start 09/12/18 at 14:00; Stop 09/15/18 at 10:12; Status DC Hydromorphone HCl (Dilaudid) 2 mg PRN Q4HRS PRN IV PAIN Last administered on 09/13/18 06:15; Start 09/12/18 at 14:00 Gabapentin (Neurontin) 600 mg TID PO Last administered on 09/14/18 20:37; Start 09/13/18 at 14:00 Docusate Sodium (Colace) 100 mg DAILY PO Last administered on 09/14/18 08:34; Start 09/13/18 at 10:00 Polyethylene Glycol (miraLAX PACKET) 17 gm PRN DAILY PRN PO CONSTIPATION; Start 09/13/18 at 09:15 Polyethylene Glycol (miraLAX PACKET) 17 gm DAILY PO Last administered on 09/14/18at 08:35; Start 09/13/18 at 09:30 Acetaminophen/ Hydrocodone Bitart (Lortab 10/325) 1 tab PRN Q6HRS PRN PO PAIN Last administered on 09/14/18at 20:46; Start 09/13/18 at 09:15 Cefazolin Sodium/ Dextrose 50 ml @ 100 mls/hr 1X PREOP ONCE IV ; Start 09/15/18 at 08:00; Stop 09/15/18 at 08:29; Status DC Bacitracin 00988 unit/Sodium Chloride 1,000 ml @ 1,000 mls/hr 1X ONCE IRR Last administered on 09/15/18at 10:18; Start 09/15/18 at 06:00; Stop 09/15/18 at 06:59; Status DC Ondansetron HCl (Zofran) 4 mg PRN Q6HRS PRN IV NAUSEA/VOMITING; Start 09/15/18 at 07:15; Stop 09/16/18 at 07:14 Fentanyl Citrate (Fentanyl 2ml Vial) 25 mcg PRN Q5MIN PRN IV MILD PAIN 1-3; Start 09/15/18 at 07:15; Stop 09/16/18 at 07:14 Fentanyl Citrate (Fentanyl 2ml Vial) 50 mcg PRN Q5MIN PRN IV MODERATE TO SEVERE PAIN; Start 09/15/18 at 07:15; Stop 09/16/18 at 07:14 Morphine Sulfate (Morphine Sulfate) 1 mg PRN Q10MIN PRN IV SEVERE PAIN 7-10; Start 09/15/18 at 07:15; Stop 09/16/18 at 07:14 Ringer's Solution 1,000 ml @ 30 mls/hr Q24H IV ; Start 09/15/18 at 07:07; Stop 09/15/18 at 19:06 Lidocaine HCl (Xylocaine-Mpf 1% 2ml Vial) 2 ml PRN 1X PRN ID PRIOR TO IV START; Start 09/15/18 at 07:15; Stop 09/16/18 at 07:14 Hydromorphone HCl (Dilaudid) 0.5 mg PRN Q10MIN PRN IV SEV PAIN, Second choice; Start 09/15/18 at 07:15; Stop 09/16/18 at 07:14 Prochlorperazine Edisylate (Compazine) 5 mg PACU PRN PRN IV NAUSEA, MRX1; Start 09/15/18 at 07:15; Stop 09/16/18 at 07:14 Bupivacaine HCl/ Epinephrine Bitart (Sensorcain-Mpf Epi 0.5%-1:249170) 30 ml STK-MED ONCE .ROUTE Last administered on 09/15/18at 10:18; Start 09/15/18 at 06 :19; Stop 09/15/18 at 07:20; Status DC Gelatin (Gelfoam Size 12-7mm) 1 each STK-MED ONCE .ROUTE Last administered on 09/15/18at 10:18; Start 09/15/18 at 06:20; Stop 09/15/18 at 07:20; Status DC Thrombin 20,000 unit STK-MED ONCE TP Last administered on 09/15/18at 10:18; Start 09/15/18 at 06:20; Stop 09/15/18 at 07:20; Status DC Midazolam HCl (Versed) 2 mg STK-MED ONCE .ROUTE ; Start 09/15/18 at 08:47; Stop 09/15/18 at 08:48; Status DC Fentanyl Citrate (Fentanyl 2ml Vial) 100 mcg STK-MED ONCE .ROUTE ; Start 09/15/18 at 08:47; Stop 09/15/18 at 08:48; Status DC Remifentanil HCl (Ultiva) 2 mg STK-MED ONCE IV ; Start 09/15/18 at 08:47; Stop 09/15/18 at 08:48; Status DC Rocuronium Energy (Zemuron) 50 mg STK-MED ONCE .ROUTE ; Start 09/15/18 at 08:47; Stop 09/15/18 at 08:48; Status DC Phenylephrine HCl (Frantz-Synephrine Inj) 10 mg STK-MED ONCE .ROUTE ; Start 09/15/18 at 10:35; Stop 09/15/18 at 10:36; Status DC Phenylephrine HCl (Frantz-Synephrine Inj) 10 mg STK-MED ONCE .ROUTE ; Start 09/15/18 at 10:35; Stop 09/15/18 at 10:36; Status DC Ondansetron HCl (Zofran) 4 mg STK-MED ONCE .ROUTE ; Start 09/15/18 at 12:02; Stop 09/15/18 at 12:03; Status DC Phenylephrine HCl (PHENYLEPHRINE in 0.9% NACL PF) 1 mg STK-MED ONCE IV ; Start 09/15/18 at 12:02; Stop 09/15/18 at 12:03; Status DC Propofol 50 ml @ As Directed STK-MED ONCE IV ; Start 09/15/18 at 12:02; Stop 09/15/18 at 12:03; Status DC Propofol 50 ml @ As Directed STK-MED ONCE IV ; Start 09/15/18 at 12:02; Stop 09/15/18 at 12:03; Status DC Propofol 20 ml @ As Directed STK-MED ONCE IV ; Start 09/15/18 at 12:02; Stop 09/15/18 at 12:03; Status DC Lidocaine HCl (Lidocaine Pf 2% Vial) 5 ml STK-MED ONCE .ROUTE ; Start 09/15/18 at 12:02; Stop 09/15/18 at 12:03; Status DC Dexamethasone Sodium Phosphate (Decadron) 20 mg STK-MED ONCE .ROUTE ; Start 09/15/18 at 12:02; Stop 09/15/18 at 12:03; Status DC Desflurane (Suprane) 90 ml STK-MED ONCE IH ; Start 09/15/18 at 12:03; Stop 09/15/18 at 12:04; Status DC Remifentanil HCl (Ultiva) 1 mg STK-MED ONCE IV ; Start 09/15/18 at 12:05; Stop 09/15/18 at 12:06; Status DC Propofol 50 ml @ As Directed STK-MED ONCE IV ; Start 09/15/18 at 12:22; Stop 09/15/18 at 12:23; Status DC Fentanyl Citrate (Fentanyl 2ml Vial) 100 mcg STK-MED ONCE .ROUTE ; Start 09/15/18 at 12:44; Stop 09/15/18 at 12:45; Status DC Active Scripts Active Reported Elizabeth Allergy (Fexofenadine Hcl) 180 Mg Tablet 1 Tab PO DAILY PRN Vitals/I & O Vital Sign - Last 24 Hours 09/14/18 09/14/18 09/14/18 09/14/18 13:47 15:00 19:20 20:00 Temp 98.3 98.4 98.3 98.4 Pulse 64 64 Resp 18 18 B/P (MAP) 124/79 (94) 131/69 (89) Pulse Ox 96 95 O2 Delivery Room Air Room Air Room Air Room Air 09/14/18 09/14/18 09/14/18 09/15/18 20:46 21:45 23:09 03:44 Temp 98.3 97.5 98.3 97.5 Pulse 67 74 Resp 18 18 18 18 B/P (MAP) 107/65 (79) 111/70 (84) Pulse Ox 96 100 O2 Delivery Room Air Room Air Room Air Room Air 09/15/18 09/15/18 09/15/18 09/15/18 07:00 08:25 12:39 12:39 Temp 97.9 97.5 97.7 97.9 97.5 97.7 Pulse 65 79 91 Resp 18 26 15 B/P (MAP) 117/73 (88) 122/78 126/56 Pulse Ox 91 97 95 O2 Delivery Room Air Room Air Simple Mask Mask O2 Flow Rate 10 10 Intake and Output 09/14/18 09/14/18 09/15/18 15:00 23:00 07:00 Intake Total 300 ml 300 ml 600 ml Output Total 150 ml Balance 150 ml 300 ml 600 ml ODALIS COLORADO MD September 15, 2018 13:05
--- NOTE | 2018-09-15 13:46 | PDOC ---
PROGRESS NOTES Subjective Subjective late entry- patient seen 09/14/18 at 1600 patient continues to have neck and right arm pain Objective Objective Vital Signs Date Time Temp Pulse Resp B/P (MAP) Pulse Ox O2 Delivery O2 Flow Rate FiO2 09/15/18 13:25 97.2 86 21 117/67 92 Nasal Cannula 2 97.2 Intake and Output 09/15/18 06:59 Intake Total 1200 ml Output Total 150 ml Balance 1050 ml Intake Oral 1200 ml Output Urine Total 150 ml # Voids 4 Physical Exam General: Alert, Oriented X3, Cooperative MUSCULOSKELETAL: Other (LOWE) Neuro: Other (strength 4/5 in right triceps) Assessment Assessment Problems Medical Problems: (1) Cervical radiculopathy, acute Status: Acute (2) Intractable pain Status: Acute Plan Plan of Care Cervical MRI reviewed with HNP at C6-7 right plan for cervical arthroplasty C6-7 tomorrow, discussed technique, risks and expected post op course, all questions answered Comment Review of Relevant I have reviewed the following items jennifer (where applicable) has been applied. Medications Current Medications Morphine Sulfate (Morphine Sulfate) 5 mg 1X ONCE IV Last administered on 09/11/18at 16:37; Start 09/11/18 at 16:00; Stop 09/11/18 at 16:26; Status DC Ondansetron HCl (Zofran) 4 mg 1X ONCE IV Last administered on 09/11/18at 16:36; Start 09/11/18 at 16:00; Stop 09/11/18 at 16:26; Status DC Lorazepam (Ativan Inj) 1 mg 1X ONCE IV Last administered on 09/11/18at 16:37; Start 09/11/18 at 16:00; Stop 09/11/18 at 16:26; Status DC Iohexol (Omnipaque 350 Mg/ml) 75 ml 1X ONCE IV Last administered on 09/11/18at 17:43; Start 09/11/18 at 18:00; Stop 09/11/18 at 18:01; Status DC Info (CONTRAST GIVEN -- Rx MONITORING) 1 each PRN DAILY PRN MC SEE COMMENTS; Start 09/11/18 at 17:45; Stop 09/13/18 at 17:44; Status DC Dexamethasone Sodium Phosphate (Decadron) 10 mg 1X ONCE IV ; Start 09/11/18 at 18:00; Stop 09/11/18 at 18:01; Status DC Ondansetron HCl (Zofran) 4 mg PRN Q8HRS PRN IV NAUSEA/VOMITING; Start 09/11/18 at 18:00; Stop 09/12/18 at 17:59; Status DC Morphine Sulfate (Morphine Sulfate) 2 mg PRN Q2HR PRN IV PAIN Last administered on 09/12/18at 08:43; Start 09/11/18 at 18:00; Stop 09/12/18 at 13:52; Status DC Lorazepam (Ativan Inj) 1 mg PRN Q6HRS PRN IV ANXIETY / AGITATION Last administered on 09/12/18at 15:09; Start 09/12/18 at 06:30 Sodium Chloride 1,000 ml @ 100 mls/hr Q10H IV Last administered on 09/15/18at 05:56; Start 09/12/18 at 06:30 Gabapentin (Neurontin) 300 mg TID PO ; Start 09/12/18 at 09:00; Stop 09/12/18 at 09:00; Status DC Cyclobenzaprine HCl (Flexeril) 10 mg PRN Q8HRS PRN PO MUSCLE SPASMS Last administered on 09/14/18at 17:12; Start 09/12/18 at 06:30 Gabapentin (Neurontin) 300 mg BID PO Last administered on 09/13/18at 08:12; Start 09/12/18 at 07:00; Stop 09/13/18 at 09:09; Status DC Cetirizine HCl (ZyrTEC) 10 mg PRN DAILY PRN PO allergy; Start 09/13/18 at 09:00 Enoxaparin Sodium (Lovenox 40mg Syringe) 40 mg Q24H SQ Last administered on 09/12/18at 15:09; Start 09/12/18 at 14:00; Stop 09/15/18 at 10:12; Status DC Hydromorphone HCl (Dilaudid) 2 mg PRN Q4HRS PRN IV PAIN Last administered on 09/13/18at 06:15; Start 09/12/18 at 14:00 Gabapentin (Neurontin) 600 mg TID PO Last administered on 09/14/18at 20:37; Start 09/13/18 at 14:00 Docusate Sodium (Colace) 100 mg DAILY PO Last administered on 09/14/18at 08:34; Start 09/13/18 at 10:00 Polyethylene Glycol (miraLAX PACKET) 17 gm PRN DAILY PRN PO CONSTIPATION; Start 09/13/18 at 09:15 Polyethylene Glycol (miraLAX PACKET) 17 gm DAILY PO Last administered on 09/14/18at 08:35; Start 09/13/18 at 09:30 Acetaminophen/ Hydrocodone Bitart (Lortab 10/325) 1 tab PRN Q6HRS PRN PO PAIN Last administered on 09/14/18at 20:46; Start 09/13/18 at 09:15 Cefazolin Sodium/ Dextrose 50 ml @ 100 mls/hr 1X PREOP ONCE IV ; Start 09/15/18 at 08:00; Stop 09/15/18 at 08:29; Status DC Bacitracin 00637 unit/Sodium Chloride 1,000 ml @ 1,000 mls/hr 1X ONCE IRR Last administered on 09/15/18at 10:18; Start 09/15/18 at 06:00; Stop 09/15/18 at 06:59; Status DC Ondansetron HCl (Zofran) 4 mg PRN Q6HRS PRN IV NAUSEA/VOMITING; Start 09/15/18 at 07:15; Stop 09/16/18 at 07:14 Fentanyl Citrate (Fentanyl 2ml Vial) 25 mcg PRN Q5MIN PRN IV MILD PAIN 1-3; Start 09/15/18 at 07:15; Stop 09/16/18 at 07:14 Fentanyl Citrate (Fentanyl 2ml Vial) 50 mcg PRN Q5MIN PRN IV MODERATE TO SEVERE PAIN Last administered on 09/15/18at 12:55; Start 09/15/18 at 07:15; Stop at 07:14 Morphine Sulfate (Morphine Sulfate) 1 mg PRN Q10MIN PRN IV SEVERE PAIN 7-10 Last administered on 09/15/18at 13:19; Start 09/15/18 at 07:15; Stop 09/16/18 at 07:14 Ringer's Solution 1,000 ml @ 30 mls/hr Q24H IV ; Start 09/15/18 at 07:07; Stop 09/15/18 at 19:06 Lidocaine HCl (Xylocaine-Mpf 1% 2ml Vial) 2 ml PRN 1X PRN ID PRIOR TO IV START; Start 09/15/18 at 07:15; Stop 09/16/18 at 07:14 Hydromorphone HCl (Dilaudid) 0.5 mg PRN Q10MIN PRN IV SEV PAIN, Second choice; Start 09/15/18 at 07:15; Stop 09/16/18 at 07:14 Prochlorperazine Edisylate (Compazine) 5 mg PACU PRN PRN IV NAUSEA, MRX1 Last administered on 09/15/18at 12:46; Start 09/15/18 at 07:15; Stop 09/16/18 at 07:14 Bupivacaine HCl/ Epinephrine Bitart (Sensorcain-Mpf Epi 0.5%-1:776377) 30 ml STK-MED ONCE .ROUTE Last administered on 09/15/18at 10:18; Start 09/15/18 at 06:19; Stop 09/15/18 at 07:20; Status DC Gelatin (Gelfoam Size 12-7mm) 1 each STK-MED ONCE .ROUTE Last administered on 09/15/18at 10:18; Start 09/15/18 at 06:20; Stop 09/15/18 at 07:20; Status DC Thrombin 20,000 unit STK-MED ONCE TP Last administered on 09/15/18at 10:18; Start 09/15/18 at 06:20; Stop 09/15/18 at 07:20; Status DC Midazolam HCl (Versed) 2 mg STK-MED ONCE .ROUTE ; Start 09/15/18 at 08:47; Stop 09/15/18 at 08:48; Status DC Fentanyl Citrate (Fentanyl 2ml Vial) 100 mcg STK-MED ONCE .ROUTE ; Start 09/15/18 at 08:47; Stop 09/15/18 at 08:48; Status DC Remifentanil HCl (Ultiva) 2 mg STK-MED ONCE IV ; Start 09/15/18 at 08:47; Stop 09/15/18 at 08:48; Status DC Rocuronium [place] (Zemuron) 50 mg STK-MED ONCE .ROUTE ; Start 09/15/18 at 08:47; Stop 09/15/18 at 08:48; Status DC Phenylephrine HCl (Frantz-Synephrine Inj) 10 mg STK-MED ONCE .ROUTE ; Start 09/15/18 at 10:35; Stop 09/15/18 at 10:36; Status DC Phenylephrine HCl (Frantz-Synephrine Inj) 10 mg STK-MED ONCE .ROUTE ; Start 09/15/18 at 10:35; Stop 09/15/18 at 10:36; Status DC Ondansetron HCl (Zofran) 4 mg STK-MED ONCE .ROUTE ; Start 09/15/18 at 12:02; Stop 09/15/18 at 12:03; Status DC Phenylephrine HCl (PHENYLEPHRINE in 0.9% NACL PF) 1 mg STK-MED ONCE IV ; Start 09/15/18 at 12:02; Stop 09/15/18 at 12:03; Status DC Propofol 50 ml @ As Directed STK-MED ONCE IV ; Start 09/15/18 at 12:02; Stop 09/15/18 at 12:03; Status DC Propofol 50 ml @ As Directed STK-MED ONCE IV ; Start 09/15/18 at 12:02; Stop 09/15/18 at 12:03; Status DC Propofol 20 ml @ As Directed STK-MED ONCE IV ; Start 09/15/18 at 12:02; Stop 09/15/18 at 12:03; Status DC Lidocaine HCl (Lidocaine Pf 2% Vial) 5 ml STK-MED ONCE .ROUTE ; Start 09/15/18 at 12:02; Stop 09/15/18 at 12:03; Status DC Dexamethasone Sodium Phosphate (Decadron) 20 mg STK-MED ONCE .ROUTE ; Start 09/15/18 at 12:02; Stop 09/15/18 at 12:03; Status DC Desflurane (Suprane) 90 ml STK-MED ONCE IH ; Start 09/15/18 at 12:03; Stop 09/15/18 at 12:04; Status DC Remifentanil HCl (Ultiva) 1 mg STK-MED ONCE IV ; Start 09/15/18 at 12:05; Stop 09/15/18 at 12:06; Status DC Propofol 50 ml @ As Directed STK-MED ONCE IV ; Start 09/15/18 at 12:22; Stop 09/15/18 at 12:23; Status DC Fentanyl Citrate (Fentanyl 2ml Vial) 100 mcg STK-MED ONCE .ROUTE ; Start 09/15/18 at 12:44; Stop 09/15/18 at 12:45; Status DC Active Scripts Active Reported Elizabeth Allergy (Fexofenadine Hcl) 180 Mg Tablet 1 Tab PO DAILY PRN Vitals/I & O Vital Sign - Last 24 Hours 09/14/18 09/14/18 09/14/18 09/14/18 13:47 15:00 19:20 20:00 Temp 98.3 98.4 98.3 98.4 Pulse 64 64 Resp 18 18 B/P (MAP) 124/79 (94) 131/69 (89) Pulse Ox 96 95 O2 Delivery Room Air Room Air Room Air Room Air 09/14/18 09/14/18 09/14/18 09/15/18 20:46 21:45 23:09 03:44 Temp 98.3 97.5 98.3 97.5 Pulse 67 74 Resp 18 18 18 B/P (MAP) 107/65 (79) 111/70 (84) Pulse Ox 96 100 O2 Delivery Room Air Room Air Room Air Room Air 09/15/18 09/15/18 09/15/18 09/15/18 07:00 08:25 12:39 12:39 Temp 97.9 97.5 97.7 97.9 97.5 97.7 Pulse 65 79 91 Resp 18 15 B/P (MAP) 117/73 (88) 122/78 126/56 Pulse Ox 91 97 95 O2 Delivery Room Air Room Air Simple Mask Mask O2 Flow Rate 10 10 09/15/18 09/15/18 09/15/18 09/15/18 12:46 12:55 12:55 13:10 Temp 97.7 97.7 97.7 97.7 Pulse 79 79 Resp 19 B/P (MAP) 117/65 110/65 Pulse Ox 95 94 95 95 O2 Delivery Simple Mask Simple Mask Simple Mask Simple Mask O2 Flow Rate 10.0 6 10.0 6 09/15/18 09/15/18 13:19 13:25 Temp 97.2 97.2 Pulse 86 Resp 22 21 B/P (MAP) 117/67 Pulse Ox 92 92 O2 Delivery Room Air Nasal Cannula O2 Flow Rate 2 Intake and Output 09/14/18 09/14/18 09/15/18 14:59 22:59 06:59 Intake Total 300 ml 300 ml 600 ml Output Total 150 ml Balance 150 ml 300 ml 600 ml SHIVAM ALONSO MD September 15, 2018 13:46
[2018-09-15] MEDS: GABAPENTIN 300 MG CAPSULE. PO SCH ×3 (13:52→21:03)
--- NOTE | 2018-09-15 14:00 | NUR ---
Pt arrived to unit from PACU by bed. Drowsy but able to answer all questions appropriately. VSS on 2L NC, pt encouraged to cough. Tolerating ice chips and water ok. Anterior neck incision CDI, ice pack to incision area. IVF infusing. at bedside. Side rail up x2, call light within reach, will continue to monitor.
[2018-09-15] MEDS: HYDROcodone/APAP 10/325 1 TAB TABLET PO PRN ×2 (15:15→23:31)
--- NOTE | 2018-09-15 15:30 | NUR ---
Pt transferred to room 452, all belonging with pt, family directed to new room. Bedside report given to LIZ Bassett.
--- NOTE | 2018-09-15 15:30 | NUR ---
Received as transfer from room 412, alert/oriented, anterior cervical dressing clean,dry & intact, ice packs placed posterior & anteriorly for discomfort, Dilaudid 2mg IVP given for discomfort level 6/10,soft cervical collar in place, HOB elevated, oxygen level 90% on 2l/nc increased to 3l/nc, encouraged deep breathing, oriented to surroundings, family member at bedside, call light within reach
[2018-09-15] MEDS: HYDROmorphone 2 MG/ML VIAL IV PRN (15:45)
--- NOTE | 2018-09-15 17:17 | NUR ---
Refuses meal at this time,states doesn't feel need to void at present, encouraged po fluid intake, took sips of water, incentive spirometry preformed inhaled max of 2000ml, family members at bedside.
--- NOTE | 2018-09-15 19:29 | OP ---
DATE OF SURGERY: 09/15/2018 PREOPERATIVE DIAGNOSES: Herniated cervical disc C6-C7 right with severe right cervical radiculopathy. POSTOPERATIVE DIAGNOSES: Herniated cervical disc C6-C7 right with severe right cervical radiculopathy. OPERATION PERFORMED: 1. Anterior cervical microdecompression C5-C6, microdiscectomy C5-C6 with decompression of dura and nerve root. 2. Placement of disc arthroplasty construct, C6-C7. The operation was done with multimodality monitoring including EMG, SSEP, motor evoked potentials and NIMS monitoring. We also used fluoroscopy and the microscope with microscopic dissection. SURGEON: Azael Alonso M.D. AUTOMOTIVE PRODUCT ENGINEER: LEIDA Sims, assisted with the surgery. She assisted with the exposure, microdiscectomy as well as a disc arthroplasty and closure. OPERATIVE INDICATIONS: The patient is a pleasant 38-year-old man who developed intractable neck and right arm pain related to a herniated disc, compressing the right C7 nerve root. He did have right triceps weakness and numbness in his right hand and I recommended an anterior cervical discectomy and arthroplasty based on his weakness and the fact that he had to be hospitalized to control his pain. He had tried multiple chiropractic treatments for several weeks without benefit. He understood the surgery and the risks. He understood the technique of the operation and wished to go ahead. DESCRIPTION OF PROCEDURE: Following general endotracheal anesthesia, the patient was positioned supine on the operating room table. The anterior cervical region was then prepped and draped in standard fashion. HAI hose and AV impulse boots were applied for DVT prophylaxis. The microscope was draped. Fluoroscopy was draped and brought into the field. Monitoring was established. Ancef 2 grams was given less than 1 hour prior to initiation of surgery. Using fluoroscopic guidance, incision was made from the midline around to the right centered over skin crease directly over the C6-C7 interspace I dissected down, skin and subcutaneous tissue visualize C6-C7 interspace confirmed my position fluoroscopically and placed [place] retractors as well as distraction pins in C6 and C7. I brought in the microscope during this time and used the microscope for the remainder of the case. I incised the anterior annulus. I performed discectomy with pituitary rongeurs. There was a large hard and partly soft herniated disc in the right lateral gutter and I teased and removed this material and opened widely bilaterally, fully decompressed the entire region. I then scraped cartilaginous endplate and worked from anterior to posteriorly and fully prepared the bed for disc arthroplasty. I chose a 6 mm size and gently tapped into position. I took lateral images and used the appropriate depth and then prepared and tapped the construct into the disc space without difficulty. I took fluoroscopic images and the construct was slightly tilted I recreated my exposure and visualized this region. The rales were perfectly positioned, I concluded that of the patient's anatomy was slightly tilted in this location, but I felt the construct was in the midline and in excellent position. I irrigated copiously with antibiotic solution. I had obtained perfect hemostasis with bone wax, which I also used as I removed the distraction pins and placed bone wax into the distraction pin sites. The hemostasis was absolutely excellent. I irrigated and closed the wound with absorbable suture. Platysma was closed in separate layer and the skin with a 4-0 subcuticular stitch. The operation went very well. There were no problems with the monitoring whatsoever. I was very pleased with the surgery. AZAEL ALONSO MD DR: SILVANO/lisa JOB#: [id number] / [id number] INGA
[2018-09-16 02:57] VITALS: BP 119/76
[2018-09-16] MEDS: IV NORMAL SALINE 1000ML BAG 1,000 ML IV SCH ×2 (03:49→10:30)
[2018-09-16] MEDS: CYCLOBENZAPRINE 10 MG TABLET. PO PRN (03:53)
[2018-09-16] MEDS: HYDROcodone/APAP 10/325 1 TAB TABLET PO PRN (06:35)
[2018-09-16 06:40] VITALS: BP 105/68
[2018-09-16] MEDS: DOCUSATE SODIUM 100 MG CAPSULE. PO SCH (08:17)
[2018-09-16] MEDS: GABAPENTIN 300 MG CAPSULE. PO SCH (08:17)
[2018-09-16] MEDS: POLYETHYLENE GLYCOL 3350 17 GM PACKET. PO SCH (08:17)
--- NOTE | 2018-09-16 09:45 | NUR ---
Up in room with steady gait and no c/o at this time. Cont. monitor.
[2018-09-16] MEDS ORDERED: GABA300C18 PO (10:38)
[2018-09-16] MEDS ORDERED: CYCL10TA2 PO (10:38)
[2018-09-16] MEDS ORDERED: HYDR-3164 PO (10:56)
[2018-09-16] MEDS ORDERED: DOCU-109 PO (10:56)
--- NOTE | 2018-09-16 10:59 | DISCH ---
DISCHARGE INSTRUCTIONS Condition on Discharge Condition on Discharge: Stable Activity After Discharge Activity Instructions for Disc: Activity as tolerated, Avoid exertion Other activity instructions: no driving for a week Bathing Instructions: Shower-keep dressing dry Lifting Instructions after Dis: No heavy lifting, No pulling or pushing, Do not lift >10 pounds Diet after Discharge Additional Diet Restrictions: resume home diet, soft Wound Incision Care Wound/Incision Care: Ice to area for comfort Other wound/incision instructi: may remove dressing in 48 hours if dry then may shower, no soaking Contacting the after DC Call your doctor for: Concerns you may have Follow-Up Follow up with: Dr. Alonso's nurse in 2 weeks [phone] SHIVAM ALONSO MD September 16, 2018 10:59
[2018-09-16 11:05] VITALS: BP 131/75
--- NOTE | 2018-09-16 11:20 | NUR ---
Discharge instructions given with prescriptions. Answered question and concerns. Verbalized understanding. Extra dressings given. Waiting for his ride home.
--- NOTE | 2018-09-16 12:25 | NUR ---
Discharged home accompanied by .
--- NOTE | 2018-09-16 14:40 | PDOC3 ---
Discharge Summary Visit Information Date of Admission: September 12, 2018 Date of Discharge: September 16, 2018 Admitting Diagnosis: intractable neck pain Final Diagnosis Problems Medical Problems: (1) Cervical radiculopathy, acute Status: Acute (2) Intractable pain Status: Acute Brief Hospital Course Allergies Allergies Coded Allergies Type Severity Reaction Last Updated Verified No Known Drug Allergies 09/11/18 No Vital Signs Vital Signs Date Time Temp Pulse Resp B/P (MAP) Pulse Ox O2 Delivery O2 Flow Rate FiO2 09/16/18 11:05 98.5 79 18 131/75 (93) 94 Room Air 98.5 09/16/18 06:40 2.0 Brief Hospital Course SEEN IN ER , 38 year old male with history of chronic neck and back pain who presents with acute right-sided neck pain radiating to right shoulder, anterior chest. Symptom onset was 9 days ago. Symptoms gradually progress. Pain is described moderate to severe worse palpation, neck rotation and movement. 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 Denies trauma , does heavy lifting at work Patient has taken [id number] pain medication and has had multiple neck treatments /// chiropractor in the past week. Reports history of herniated disks. No motor weakness Patient was admitted for evaluation of his symptoms and seen in consultation by neurosurgery, patient's hospital stay was somewhat prolonged since it took some time to do an MRI of the neck. Once this was done in her surgery had evaluated the patient he underwent surgical intervention on 09/15/2018 Report as follows: PREOPERATIVE DIAGNOSES: Herniated cervical disk C6-C7 right with severe right cervical radiculopathy. POSTOPERATIVE DIAGNOSES: Herniated cervical disk C6-C7 right with severe right cervical radiculopathy. OPERATION PERFORMED: 1. Anterior cervical microdecompression C5-C6, microdiskectomy C5-C6 with decompression of dura and nerve root. 2. Placement of disk arthroplasty construct, C6-C7. The operation was done with multimodality monitoring including EMG, SSEP, motor evoked potentials and NIMS monitoring. We also used fluoroscopy and the microscope with microscopic dissection. VENEER SLICING MACHINE OPERATOR: LEIDA Sims, assisted with the surgery. She assisted with closure of the microdiskectomy as well as a disk arthroplasty and closure. OPERATIVE INDICATIONS: The patient is a pleasant 38-year-old man who developed intractable neck and right arm pain related to a herniated disk, compressing the right C7 nerve root. He did have right triceps weakness and numbness in his right hand and I recommended an anterior cervical diskectomy and fusion based on his weakness and the fact that he had to be hospitalized to control his pain. He had tried multiple chiropractic treatments for several weeks without benefit. He understood the surgery and the risks. He understood the technique of the operation and wished to go ahead. Patient was deemed appropriate for discharge from the neurosurgical standpoint of view he tolerated the procedure well and had great improvement off his symptoms. Patient was in good spirits to be discharged home the sinus symptoms of alarm were discussed prior to discharge and he will be following up with Dr. Galdamez in the outpatient setting. Pain management as per Dr. Galdamez concerns were addressed to the best of my abilities prior to discharge in good spirits to be going home Lungs clear to auscultation bilaterally Cardiovascularly the patient had S1-S2 is regular rhythm no murmurs calls or rubs Neurologic cranial nerves II-12 intact no motor or sensory deficits appreciated Discharge Information Condition at Discharge: Improved Follow Up: Weeks Disposition/Orders: D/C to Home Scheduled Docusate Sodium (Colace) 100 Mg Capsule, 100 MG PO BID for constipation, #60 Prescribed by: SHIVAM ALONSO on 09/16/18 1056 Gabapentin (Gabapentin) 300 Mg Capsule, 600 MG PO TID for neuropathy for 30 Days, #180 Prescribed by: ODALIS COLORADO MD on 09/16/18 1038 Hydrocodone/Apap 5-325 (Mont[place] 5-325 Tablet) 1 Each Tablet, 1-2 TAB PO Q4-6HRS for pain, #40 Prescribed by: SHIVAM ALONSO on 09/16/18 1056 Scheduled PRN Cyclobenzaprine Hcl (Cyclobenzaprine Hcl) 10 Mg Tablet, 10 MG PO PRN Q8HRS PRN for MUSCLE SPASMS for 10 Days, #30 Prescribed by: ODALIS COLORADO MD on 09/16/18 1038 Fexofenadine Hcl (Elizabeth Allergy) 180 Mg Tablet, 1 TAB PO DAILY PRN for ALLERGIES, #30 Ref 2 (Reported) Entered as Reported by: Carmen Cobian on 09/12/18 0850 Last Taken: one daily PRN on Unknown Date & Time Last Action: Converted on 09/12/18 1348 by JAMESON GUTIÉRREZ MD Discontinued Medications Info (No Known Medications Prior To Admisstion) Each, 1 EACH MC 1X for none, (Reported) Entered as Reported by: Carmen Cobian on 09/12/18639 Last Action: Discontinued on 09/12/18849 by ODALIS Bolanos MD September 16, 2018 14:40
--- NOTE | 2018-09-17 20:06 | PATHOLOGY ---
[facility] Accession Number: [id number] . 01 Material submitted: . vertebral column - CERVICAL DISC . 01 Clinical history: . Cervical spondylosis, radiculopathy . 02 Diagnosis: Segments of fibrocartilaginous tissue and minute segments of bone, cervical disc: - Degenerative changes of fibrocartilagionous tissue. (JPM:emily; 09/17/2018) QMS/09/17/2018 . 02 Comment: There is no evidence of an acute inflammatory process or malignancy. (JPM:emily; 09/17/2018) . 02 Electronically signed: . Brian Smith MD, Pathologist NPI- [id number] . 01 Gross description: . Received in formalin labeled "Matt Cervantes, cervical disc," are several pieces of glistening, fibrous tissue measuring 3.1 x 2.7 x 0.6 cm in aggregate dimensions, containing small fragments of possible bone. The tissue is submitted representatively in cassette A1, following decalcification. (TSD; 09/15/2018) TOB/TOB . 02 Pathologist provided ICD-10: M47.892, M54.12 . 02 CPT . 862511, 316799 Specimen Comment: A courtesy copy of this report has been sent to Specimen Comment: [phone], , . Specimen Comment: Report sent to ,DR DOMINGUEZ / DR BINGHAM Performed at: 01 [facility] [address], [place], [place] [id number] MD Zac Marinelli MD Phone: [phone] Performed at: 02 [facility] [address], [place] [id number] MD Brian Smith MD Phone: [phone]
== END 2018-09-16 12:25 | disposition home or self-care (01) | DRG 518 ==
LOC: ER 15:26 → 6 SOUTH 17:48 → 4 NORTH 19:18 → OBSVTOIN 09-14 11:54 → 4 SOUTHEST 09-15 15:27
PROVIDERS: ADMIT Internal Medicine; ATTEND Internal Medicine
PROC: 01N10ZZ Release Cervical Nerve, Open Approach (ICD-10-PCS; 2018-09-15)
PROC: 4A11X4G Monitoring of Peripheral Nervous Electrical Activity, Intraoperative, External Approach (ICD-10-PCS; 2018-09-15)
PROC: 0RR30JZ Replacement of Cervical Vertebral Disc with Synthetic Substitute, Open Approach (ICD-10-PCS; 2018-09-15)
PROC: 0RB30ZZ Excision of Cervical Vertebral Disc, Open Approach (ICD-10-PCS; principal; 2018-09-15 09:00)
DX: M50.123 Cervical disc disorder at C6-C7 level with radiculopathy (principal); E78.5 Hyperlipidemia, unspecified; M77.9 Enthesopathy, unspecified; Z79.899 Other long term (current) drug therapy
CPT/HCPCS: 36415; 70496; 70498; 72141; 76000; 80048; 80053; 85025; 88304; 88311; 96374; 96375; A7015; C1713; G0378; G0379; J0696; J0780; J1100; J1170; J1650; J2001; J2060; J2250; J2270; J2370; J2405; J2704; J3010; J3490; J7030; Q9967; 97116; 97530; 99285-25